=== PATIENT | male | born 1975 | race Hispanic/Latino ===

== ENCOUNTER 2024-06-25 17:58 | Emergency (ER) | payer SELFPAY ==
[2024-06-25 18:07] VITALS: BP 134/94; BMI 24.6
[2024-06-25 18:24] LABS: % Basophils 0.3 % (0-2); % Eosinophils 0.5 % (0-6); % Immature Granulocytes 0.4 % (0-0.5); % Lymphocytes 11.3 % (20.5-51.1); % Monocytes 6.6 % (1.7-9.3); % Neutrophils 80.9 % (42.2-75.2); Absolute Eosinophils 0.1 10^3/uL (0-0.7); Absolute Immature Granulocytes 0.1 10^3/uL (0-0.05); Absolute Lymphocytes 1.3 10^3/uL (1.2-3.4); Absolute Monocytes 0.8 10^3/uL (0.1-0.6); Absolute Neutrophils 9.6 10^3/uL (1.4-6.5); Hematocrit 42.4 % (39.0-52.0); Hemoglobin 14.5 g/dL (13.0-18.0); Mean Corp Hgb Conc. 34.2 g/dL (33.0-37.0); Mean Corpuscular Hgb 30.7 pg (27.0-31.0); Mean Corpuscular Volume 89.8 fL (80.0-94.0); Mean Platelet Volume 10.4 fL (7.4-10.4); Nucleated Red Blood Cells % 0 % (-); Platelet Count 207 10^3/uL (130-400); Red Blood Cell Count 4.72 10^6/uL (4.70-6.10); Red Cell Dist. Width 12.5 % (11.5-14.5); White Blood Cell Count 11.9 10^3/uL (4.8-10.8)
[2024-06-25 19:14] LABS: ALT (SGPT) 47 U/L (0-50); AST (SGOT) 45 U/L (17-59); Albumin 4.3 g/dl (3.5-5.0); Alkaline Phosphatase 87 U/L (38-126); Blood Urea Nitrogen 13 mg/dl (9-20); Calcium 9.7 mg/dl (8.4-10.2); Carbon Dioxide 27 mmol/L (22-30); Chloride 101 mmol/L (98-107); Estimated Creatinine Clearance 75 ml/min; Glucose 119 mg/dl (70-99); Potassium 4.6 mmol/L (3.5-5.1); Sodium 138 mmol/L (135-145); Total Bilirubin 0.4 mg/dl (0.2-1.3); Total Protein 7.3 g/dl (6.3-8.2); eGFR > 60.00
[2024-06-25 22:00] VITALS: BP 124/71
[2024-06-25 22:01] VITALS: BP 124/71
--- NOTE | 2024-06-25 22:26 | ED.GENMED ---
History of Present Illness
General
Chief Complaint: Musculo-Skeletal Complaint
Source: patient
Exam Limitations: none
Time Seen by Provider: 06/25/24 22:07
Nursing documentation reviewed up to this point in time: agreed with
History of Present Illness
History of Present Illness:
This a pleasant 48-year-old male presents to the emergency department with a red, inflamed, and painful right knee. He states it has been swollen. He is in town visiting from [facility] and is due to travel back tomorrow. States that he has had
fever yesterday. Patient lives in [facility] and states that he is at town visiting. His knee has been inflamed since first getting here. He states that he has absolutely no pain with weightbearing. He has been doing lunges and snowboarding on
it. He noticed progressive swelling and fever over 24 hours ago so he came into the emergency department for evaluation. Denies any current fevers.
Review of Systems
Review of Systems
Allergies reviewed?: Yes
All Other Systems: ROS reviewed and negative except as documented in HPI and ROS
Skin: Reports other (redness)
Psychiatric: Reports anxiety
Phy Exam
General Physical Exam
General Presentation: well appearing and mild distress
General age: appears stated age
General Skin: warm and dry
General Habitus: normal
General Mental: alert
General Hydration: appears well hydrated
Pulmonary Exam
Pulmonary Exam: no respiratory distress
Neurological Exam
Neurological Exam: alert and oriented x3
Musculoskeletal Exam
Musculoskeletal Exam: full ROM and other (Full range of motion. Without pain. Significant swelling and superficial erythema. Non ballotable patella)
Skin Exam
Skin Exam: normal color and erythema
Psychiatric Exam
Psychiatric Exam: normal mood/affect
Course
Orders/Labs/Results
Orders:
Orders
06/25/24 18:15
C-Reactive Protein Urgent
Comment: ADD ON
Complete Blood Count/With Diff Urgent
Comprehensive Metabolic Panel Urgent
Erythrocyte Sed Rate Urgent
Comment: ADD ON
06/25/24 22:18
Lactic Acid Q4H
Comment: ON ICE, CANCEL 2ND ORDER IF FIRST LACTIC ACID LEVEL <2
Blood Culture Urgent
PORSCHE Source: Blood/Venous
Specimen Description:
06/25/24 22:21
Blood Culture Urgent
PORSCHE Source: Blood/Venous
Specimen Description:
06/25/24 22:46
CT Lower Ext W/o Iv Cont Rt Urgent
Comment:
Reason For Exam: r knee swelling
06/25/24 22:47
CeFAZolin 2 GRAM [Ancef] 2 grams in 10 ml IV NOW
06/26/24 00:08
Add On- LAB Urgent
Tests Added?: ESR and CRP
Add On- LAB Urgent
Tests Added?: crp, sed
06/26/24 00:36
0.9% Sodium Chloride 1000 ml [Nss] 1,000 ml IV BOLUS
Ondansetron Injectable [Zofran] 4 mg IV NOW STA
06/26/24 00:45
Wound Culture [Wound/Abscess/Other Culture] Urgent
PORSCHE Source: Knee
Specimen Description: Right
Date Specimen was Collected: 06/26/24
Time Specimen was Collected: 00:37
Abnormal Lab Results
06/25/24
18:15
WBC 11.9 H 10^3/uL
(4.8-10.8)
Abs Immat Gran (auto) 0.1 H 10^3/uL
(0-0.05)
Absolute Neuts (auto) 9.6 H 10^3/uL
(1.4-6.5)
Absolute Monos (auto) 0.8 H 10^3/uL
(0.1-0.6)
Neutrophils % 80.9 H %
(42.2-75.2)
Lymphocytes % 11.3 L %
(20.5-51.1)
ESR 32 H mm/hour
(0-20)
Glucose 119 H mg/dl
(70-99)
C-Reactive Protein 140.80 H mg/L
(0.0-10.00)
06/25/24 18:15
06/25/24 18:15
Vital Signs
Initial and Last Documented VS:
Initial Vital Signs
Pulse Resp BP Pulse Ox
88 16 134/94 99
06/25/24 18:07 06/25/24 18:07 06/25/24 18:07 06/25/24 18:07
Last Documented Vital Signs
Temp Pulse Resp BP Pulse Ox
97.0 F 65 16 107/60 95
06/25/24 23:44 06/25/24 23:44 06/25/24 22:01 06/26/24 01:00 06/26/24 01:45
Procedures
Incision/Drainage/Joint Aspiration
Right Knee:
Anethesia: 1% Lidocaine
Preparation: cleaned with Hibiclens
Type of procedure: aspiration
Nature of site: seroma
Description of abscess: greater than 3cm
How much fluid was obtained?: number in mls (60)
Fluid description: serosanguinous (Sent for culture)
Treatment: antibiotics started
Additional information:
Patient had a brief vagal episode immediately following the procedure. He was put in position given supplemental oxygen. He came to. Had 1 episode of vomiting. He is getting fluids and Zofran.
*Critical Care Note
Total Time (30-74mins, 75-104mins- exclusive of procedures): Not Applicable
Update Note
Update Note:
CT right knee noncontrast
IMPRESSION:
Prominent subcutaneous edema predominantly along the anterior knee with associated skin thickening. No significant joint effusion.
Minimal degenerative changes with joint space loss of the medial compartment.
Discussed admission to the hospital. Patient has a flight back to [facility] and does not wish to stay. Will receive antibiotics at discharge.
ED Attending Note
-
Portions of this chart may have been created with voice recognition software.� Occasional wrong word or��sound alike� substitutions may have occurred due to the inherent limitations of voice recognition software.
Discharge Plan
Departure
Patient Disposition: Home (Routine Discharge)
Date of Disposition: 06/26/24
Time of Disposition: 02:01
Patient with high blood pressure during this ER visit?: No
Discharge Problem:
Effusion of knee joint right
Instructions: Arthrocentesis, Swollen Joints
Prescriptions:
New
sulfamethoxazole-trimethoprim [Bactrim DS] 800-160 mg tablet
1 tab PO Q12H Qty: 20 0RF
cephalexin 500 mg capsule
500 mg PO BID 10 Days Qty: 20 0RF
ondansetron 4 mg tablet,disintegrating
4 mg PO Q8H 5 Days Qty: 15 0RF
Referrals:
Pk Ortiz MD [Active] -
NONE,* [Family Provider] -
Activity Restrictions/Additional Instructions:
Please follow-up as soon as you get back to [facility].
It was a pleasure meeting you and taking part in your care. We hope for your continued healing and wellness.
Please read discharge instructions in their entirety. However, they are for general education and may not describe your exact diagnosis at discharge. Information on your ER visit and medical conditions were discussed with you along with appropriate
follow up information...
If indicated, please take your medications as instructed and indicated on discharge paperwork.
Please schedule a follow up appointment as directed. Call to schedule an appointment
Please return to the emergency department with ANY change in, persisting, or worsening of symptoms. If any of your symptoms do not improve, or persist, or become more severe within 6-12 hours, please return to the emergency department for further
care.
Please return to the emergency department if you develop a headache, neck pain/stiffness, fever greater than 100.4F, chest pain, shortness of breath, persistent nausea, vomiting, slurred speech, difficulty walking, numbness/tingling, weakness, signs
of infection or any other symptoms that are worrisome to you.
If you have any questions or concerns please do not hesitate to call the Hospital at or E-mail me directly at [email or web address]
Interventions
Interventions:
*Risk Screen - Suicide Last Done: 06/25/24 22:03
*General Assessment Last Done: 06/25/24 22:04
*Neglect/Abuse Screening Last Done: 06/25/24 18:07
ED- Fall Risk Assessment Last Done: 06/25/24 22:04
*ED COVID-19 Vaccine History Last Done: 06/25/24 18:07
*Nursing Disposition Last Done: 06/26/24 02:15
ED-Musculoskeletal Assessment Last Done: 06/26/24 00:21
Discharge Date and Time
Discharge Date/Time: 06/26/24 02:15
Print Language: BELARUSIAN
[2024-06-25 22:42] LABS: Lactic Acid 0.8 mmol/L (0.7-2.0)
[2024-06-25 23:42] VITALS: BP 119/73
[2024-06-25 23:44] VITALS: BP 119/76
[2024-06-25] MEDS: ANCEF 10 IV (23:46)
[2024-06-26 00:27] VITALS: BP 114/65
[2024-06-26] MEDS: NSS 1000 IV (00:43)
[2024-06-26] MEDS: ZOFRAN 4 MG IV (00:44)
[2024-06-26 00:57] LABS: Erythrocyte Sed Rate 32 mm/hour (0-20)
[2024-06-26 01:00] VITALS: BP 107/60
== END 2024-06-26 02:15 | disposition home or self-care (01) ==
LOC: EMR 17:58
PROVIDERS: Emergency Medicine; EMERGENCY PHYSICIAN Student in an Organized Health Care Education/Training Program
DX: M25.461 Effusion, right knee (principal)
CPT/HCPCS: 99284; 20610; 96374; 96375; 73700; 80053; 83605; 85025; 85652; 86140; 87040; 87070; 87147; 87186; 87205